=== PATIENT | male | born 1985 | race Caucasian/White ===

== ENCOUNTER 2017-08-17 11:19 | Emergency (ER) | payer SELFPAY ==
[~2017-08-17] VITALS: Ht 165.1 cm; Wt 66.3 kg
[2017-08-17 11:31] VITALS: Ht 165.1 cm; Wt 66.3 kg
[2017-08-17 13:17] VITALS: BP 125/75
== END 2017-08-17 13:17 | disposition home or self-care (01) ==
LOC: ED 11:19
DX: S51.812A Laceration without foreign body of left forearm, initial encounter (principal); W26.8XXA Contact with other sharp object(s), not elsewhere classified, initial encounter; Y93.89 Activity, other specified; Y92.89 Other specified places as the place of occurrence of the external cause; Y99.8 Other external cause status
CPT/HCPCS: J2001